=== PATIENT | male | born 1990 | race American Indian/Alaskan Native ===

== ENCOUNTER 2018-04-15 14:00 | Emergency (ER) | payer BC, MEDICAID ==
[2018-04-15] MEDS ORDERED: NACL 0.9% 500 ML IR ONE (14:26)
[2018-04-15] MEDS ORDERED: BOOSTRIX IM ONE (14:26)
[2018-04-15] MEDS ORDERED: NACL 0.9% IR ONE (14:30)
[2018-04-15] MEDS ORDERED: XYLOCAINE 1% 20 mL INFILTRATI ONE (14:30)
--- NOTE | 2018-04-15 14:31 | Emergency Department Report ---
ED Psych HPI - General Chief Complaint: Psych Stated Complaint: SUICIDE ATTEMPT Time Seen by Provider: 04/15/18 14:20 Source: patient Mode of arrival: Ambulatory - History of Present Illness Initial Comments: Patient is 27 years old male with history of bipolar disorder. Patient presented to the ER complaining of suicidal ideation and suicidal attempt. He presented with multiple lacerations to the left wrist. He stated that he did not use a knife and instead he used a dirty ceramic tile. Patient stated that he does not want a tetanus shot because he wanted to get tetanus from this injury so he can . He does not remember the last time he had a tetanus shot. Patient denied any homicidal ideation. No visual or auditory hallucinations. Patient is very depressed secondary to financial issues and patient is being homeless. MD Complaint: suicidal ideation -: This morning Associated Psychiatric Symptoms: depression, suicidal ideation History of same: Yes Quality: constant Associated Symptoms: denies other symptoms If Self Harm: admits thoughts of, has acted on plan, self-inflicted trauma - Related Data Home Medications Medication Instructions Recorded Confirmed Last Taken busPIRone [Buspar] 7.5 mg PO BID 04/15/18 04/15/18 Unknown lamoTRIgine XR [LaMICtal Xr] 50 mg PO QDAY 04/15/18 04/15/18 Unknown Allergies Allergy/AdvReac Type Severity Reaction Status Date / Time aspirin Allergy Hives Verified 04/15/18 14:09 Penicillins Allergy Hives Verified 04/15/18 14:09 ED Review of Systems ROS: Stated complaint: SUICIDE ATTEMPT Other details as noted in HPI Comment: All other systems reviewed and negative Constitutional: denies: chills, fever Respiratory: denies: cough, orthopnea, shortness of breath, SOB with exertion, SOB at rest, wheezing Cardiovascular: denies: chest pain, palpitations, dyspnea on exertion Gastrointestinal: denies: abdominal pain, nausea, vomiting, diarrhea, constipation, hematemesis, melena, hematochezia Genitourinary: denies: urgency, dysuria, frequency, hematuria, discharge, testicular pain, testicular mass Skin: denies: rash Neurological: denies: headache, weakness, numbness, paresthesias, confusion, abnormal gait, vertigo Psychiatric: depression, suicidal thoughts. denies: auditory hallucinations, visual hallucinations, homicidal thoughts ED Past Medical Hx - Past Medical History Previous Medical History?: No - Surgical History Past Surgical History?: No - Social History Smoking Status: Never Smoker Substance Use Type: None - Medications Home Medications: Home Medications Medication Instructions Recorded Confirmed Last Taken Type busPIRone [Buspar] 7.5 mg PO BID 04/15/18 04/15/18 Unknown History lamoTRIgine XR [LaMICtal Xr] 50 mg PO QDAY 04/15/18 04/15/18 Unknown History ED Physical Exam - General Limitations: No Limitations General appearance: alert, in no apparent distress - Head Head exam: Present: atraumatic, normocephalic, normal inspection - Eye Eye exam: Present: normal appearance, PERRL - ENT ENT exam: Present: normal exam, normal orophraynx, mucous membranes moist - Neck Neck exam: Present: normal inspection, full ROM. Absent: tenderness, meningismus, lymphadenopathy, thyromegaly - Respiratory Respiratory exam: Present: normal lung sounds bilaterally. Absent: respiratory distress, wheezes, rales, rhonchi, chest wall tenderness, accessory muscle use, decreased breath sounds, prolonged expiratory - Cardiovascular Cardiovascular Exam: Present: regular rate, normal rhythm, normal heart sounds - GI/Abdominal GI/Abdominal exam: Present: soft, normal bowel sounds. Absent: distended, tenderness, guarding, rebound, rigid, organomegaly, mass, bruit, pulsatile mass , hernia - Extremities Exam Extremities exam: Present: other (multiple laceration to left wrist with no active bleeding.) - Back Exam Back exam: Present: normal inspection, full ROM. Absent: tenderness, CVA tenderness (R), CVA tenderness (L), muscle spasm, paraspinal tenderness, vertebral tenderness, rash noted - Neurological Exam Neurological exam: Present: alert, oriented X3, CN II-XII intact, normal gait, reflexes normal. Absent: motor sensory deficit - Psychiatric Psychiatric exam: Present: depressed, suicidal ideation. Absent: flat affect, manic, homicidal ideation - Skin Skin exam: Present: warm, normal color ED Course Vital Signs 04/15/18 14:04 Temperature 98.7 F Pulse Rate 111 H Respiratory 18 Rate Blood Pressure 134/87 O2 Sat by Pulse 95 Oximetry - Laceration /Wound Repair Left Wrist Wound Location: upper extremity Wound Length (cm): 3 Wound's Depth, Shape: linear Wound Explored: no foreign body removed Irrigated w/ Saline (ccs): 100 Betadine Prep?: Yes Anesthesia: 1% Lidocaine Volume Anesthetic (ccs): 3 Wound Debrided: moderate Wound Repaired With: sutures Suture Size/Type: 4:0 Layer Closure?: No Sterile Dressing Applied?: Yes ED Medical Decision Making - Lab Data Result diagrams: 04/15/18 15:01 04/15/18 15:01 Critical care attestation.: If time is entered above; I have spent that time in minutes in the direct care of this critically ill patient, excluding procedure time. ED Disposition Clinical Impression: Suicide attempt, Laceration of left wrist Disposition: [id number] PSY HOSP/PSY UNIT Is pt being admited?: No Condition: Stable Referrals: PRIMARY CARE, [Primary Care Provider] - 3-5 Days
[2018-04-15] MEDS ORDERED: XYLOCAINE 1% 20 mL ONE (14:59)
[2018-04-15 15:34] LABS: Basophils # (Auto) 0.2 K/mm3 (0.0-0.1); Eosinophils # (Auto) 0.3 K/mm3 (0.0-0.4); Eosinophils % (Auto) 1.4 % (0.0-4.3); Hematocrit 50.1 % (35.5-45.6); Hemoglobin 16.8 gm/dl (11.8-15.2); Lymphocytes # (Auto) 3.2 K/mm3 (1.2-5.4); Lymphocytes % (Auto) 17.1 % (13.4-35.0); Mean Corpuscular HGB Conc 34 % (32-34); Mean Corpuscular Hemoglobin 30 pg (28-32); Mean Corpuscular Volume 88 fl (84-94); Monocytes # (Auto) 1.1 K/mm3 (0.0-0.8); Monocytes % (Auto) 5.7 % (0.0-7.3); Platelet Count 502 K/mm3 (140-440); Red Blood Count 5.68 M/mm3 (3.65-5.03); Red Cell Distribution Width 14.9 % (13.2-15.2)
[2018-04-15 15:36] LABS: BUN/Creatinine Ratio 13; Blood Urea Nitrogen 12 mg/dL (9-20); Calcium 10.2 mg/dL (8.4-10.2); Hemolysis Index 7
[2018-04-15 16:21] LABS: Bilirubin,Urine NEG (Negative); Blood,Urine NEG (Negative); Color,Urine Yellow (Yellow); Mucus,Urine FEW /HPF; Protein,Urine <15 mg/dL mg/dL (Negative); Urobilinogen,Urine < 2.0 mg/dL (<2.0)
[2018-04-15 16:28] LABS: Amphetamine Screen,Urine PRESUMPTIVE NEGATIVE; Benzodiazepines Screen,Urine PRESUMPTIVE NEGATIVE; Cannabinoid Screen,Urine PRESUMPTIVE NEGATIVE; Cocaine Screen,Urine PRESUMPTIVE NEGATIVE; Methadone Screen,Urine PRESUMPTIVE NEGATIVE; Opiate Screen,Urine PRESUMPTIVE NEGATIVE
[2018-04-15] MEDS ORDERED: LAMOTRIGINE 50 MG PO SCH (19:00)
[2018-04-15] MEDS ORDERED: LaMICtal ONE (22:05)
[2018-04-15] MEDS: BUSPAR PO SCH (22:13)
[2018-04-15] MEDS ORDERED: LaMICtal PO ONE (22:20)
[2018-04-16 09:28] VITALS: BP 136/78
[2018-04-16] MEDS: BUSPAR PO SCH (10:15)
== END 2018-04-16 15:47 ==
LOC: ED 14:00 → EEVIPCON 14:00 → ED 04-16 15:47
DX: S61.512A Laceration without foreign body of left wrist, initial encounter (principal); F31.9 Bipolar disorder, unspecified; Z88.0 Allergy status to penicillin; Z88.6 Allergy status to analgesic agent; X78.8XXA Intentional self-harm by other sharp object, initial encounter; Y93.89 Activity, other specified; Y92.89 Other specified places as the place of occurrence of the external cause; Y99.8 Other external cause status
CPT/HCPCS: 12002; 36415; 80048; 80307; 81001; 85025; 99285; G0480; 80320